=== PATIENT | female | born 1995 | race Caucasian/White ===

== ENCOUNTER 2019-01-02 13:21 | Emergency (ER) | payer OTHER ==
[2019-01-02 15:28] LABS: Absolute Lymphocytes (CBC) 1.8 K/uL (0.7-4.9); Absolute Monocytes 0.8 K/uL (0.1-1.3); Absolute Neutrophil 7.6 K/uL (1.8-8.0); Basophils % 0.5 % (0-1.3); Eosinophils % 3.4 % (0-4.4); Hematocrit 41.3 % (36.0-45.0); Lymphocytes % 17.3 % (15.3-44.8); MPV 9.2 fL (7.6-11.3); Monocytes % 7.6 % (3.3-12.3); RBC Red Blood Cell Count 4.52 M/uL (3.86-4.86)
[2019-01-02 15:52] LABS: Urine Amorphous Sediment 1+ /HPF (NONE SEEN); Urine Bacteria 20-50 /HPF (<20); Urine Culture Reflex Order REFLEXED
[2019-01-02 15:53] LABS: Urine Blood 1+ (NEG); Urine Glucose NEGATIVE (NEG); Urine Protein 1+ (NEG)
[2019-01-02 16:25] LABS: BUN Blood Urea Nitrogen 4 mg/dL (7-18); Bicarbonate 25 mmol/L (21-32); Glucose Level 72 mg/dL (74-106); HCG, Quantitative 47326 mIU/mL (1-3); Potassium 3.9 mmol/L (3.5-5.1); Sodium Level 136 mmol/L (136-145); Troponin (Emerg Dept Use Only) < 0.02 ng/mL (0.0-0.045)
--- NOTE | 2019-01-02 17:30 | ER ---
Nurse's Notes [facility] Name: Gayle Hunt Age: 23 yrs Sex: Female : 1995 Arrival Date: 01/02/2019 Time: 13:24 Bed 24 Private MD: Diagnosis: 8 weeks gestation of ;Syncope and collapse;Urinary tract infection, site not specified Presentation: 01/02 13:45 Presenting complaint: Frequent syncopal episodes, subjective fever, and N/V x 1 week. hb Tolerating fluids, not tolerating solids. Seen at [facility], told she was dehydrated. Report she is approx 6 weeks , DONAVAN 08/17/19, . Transition of care: patient was not received from another setting of care. Onset of symptoms was December 26, 2018. Risk Assessment: Do you want to hurt yourself or someone else? Patient reports no desire to harm self or others. Initial Sepsis Screen: Does the patient meet any 2 criteria? No. Patient's initial sepsis screen is negative. Does the patient have a suspected source of infection? No. Patient's initial sepsis screen is negative. Care prior to arrival: None. 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 - Social history:: Smoking status: Patient/guardian denies using tobacco. - Ebola Screening: : No symptoms or risks identified at this time. Screenin:52 Abuse screen: Denies threats or abuse. Denies injuries from another. Nutritional rv screening: No deficits noted. Tuberculosis screening: No symptoms or risk factors identified. Fall Risk None identified. Assessment: 14:50 General: Appears in no apparent distress. comfortable, Behavior is calm, cooperative. rv Pain: Denies pain. Neuro: Level of Consciousness is awake, alert, obeys commands, Oriented to person, place, time, situation, Reports a syncopal episode. Cardiovascular: Patient's skin is warm and dry. Respiratory: Airway is compromised. GI: Abdomen is round Reports nausea, vomiting. : No signs and/or symptoms were reported regarding the genitourinary system. EENT: No signs and/or symptoms were reported regarding the EENT system. Derm: Skin is intact. Musculoskeletal: No signs and/or symptoms reported regarding the musculoskeletal system. Vital Signs: 13:48 BP 128 / 78; Pulse 102; Resp 16; Temp 97.4; Pulse Ox 99% on R/A; Weight 68.04 kg; hb Height 4 ft. 11 in. (149.86 cm); Pain 0/10; 15:35 BP 97 / 69 LA Supine (auto/lg); Pulse 81; Pulse Ox 98% on R/A; jp3 15:37 BP 105 / 75 LA Sitting (auto/lg); Pulse 76; Pulse Ox 100% on R/A; jp3 15:39 BP 124 / 101 LA Standing (auto/lg); Pulse 95; Pulse Ox 100% on R/A; jp3 16:00 BP 107 / 74; Pulse 75; Resp 16; Pulse Ox 96% ; rv 16:30 BP 105 / 67; Pulse 82; Resp 17; Temp 97.9; Pulse Ox 97% ; rv 17:30 BP 99 / 70; Pulse 86; Resp 17; Temp 98; Pulse Ox 99% ; rv 13:48 Body Mass Index 30.30 (68.04 kg, 149.86 cm) hb 15:35 Pt states "I feel dizzy and some chest pressure (8/10)" jp3 15:37 Pt states "If feel dizzy, some blurry vision; worse than laying down" jp3 15:39 Pt states " I feel weakness in my knees, dizziness, vlurry vision; chest pressure worse jp3 than all 3 postions" ED Course: 13:24 Patient arrived in ED. rg4 13:35 [facility]C [facility] kb 13:35 Jhon Figueroa MD is Attending Physician. kb 13:48 Triage completed. hb 13:48 Arm band placed on. hb 14:44 Patrice Beckwith, ZONIA is Primary Nurse. rv 14:52 Patient has correct armband on for positive identification. Bed in low position. Call rv light in reach. Side rails up X 1. Adult w/ patient. Pulse ox on. NIBP on. 15:15 Inserted saline lock: 22 gauge in right antecubital area, using aseptic technique. rv 15:43 Initial lab(s) drawn, by laborer beam house, sent to lab. Urine collected: clean catch specimen, rv cloudy, Amount Voided: 10mL. 17:29 Ultrasound completed. Patient tolerated well. sg3 17:31 US Transvaginal Ob In Process Unspecified. EDMS 17:44 No provider procedures requiring assistance completed. IV discontinued, intact, rv bleeding controlled, No redness/swelling at site. Pressure dressing applied. Administered Medications: No medications were administered Outcome: 17:29 Discharge ordered by . kb 17:44 Discharged to home ambulatory. rv 17:44 Condition: good 17:44 Discharge instructions given to patient, Instructed on discharge instructions, follow up and referral plans. medication usage, Demonstrated understanding of instructions, follow-up care, medications, Prescriptions given X 1. 17:45 Patient left the ED. rv Signatures: Dispatcher [employer] EDWA Zainab Roach, COMMUNITY ACTION WORKER-C COMMUNITY ACTION WORKER-Ckb Bonita Fields, RN RN Kimberlyn Daugherty4 Ana Price sg3 Patrice Beckwith RN RN rv Fransico Nagy jp3
--- NOTE | 2019-01-02 17:30 | EDPHYS ---
Physician Documentation [facility] Name: Gayle Hunt Age: 23 yrs Sex: Female : 1995 Arrival Date: 01/02/2019 Time: 13:24 Bed 24 Private MD: ED Physician Jhon Figueroa HPI: 01/02 16:26 This 23 yrs old Female presents to ER via Wheelchair with complaints of kb Fainting, Vomiting, 6 Weeks ,Body Aches. 16:26 The patient has experienced syncope, collapsed. Onset: The symptoms/episode kb began/occurred 1 week(s) ago. Duration: The patient has had multiple episodes. Context: occurred at home, Just prior to the episode the patient experienced no apparent symptoms. Associated injury: The patient did not suffer any apparent associated injury. Associated signs and symptoms: Pertinent positives: 1st trimester. Current symptoms: Currently, the patient is not experiencing any symptoms, the patient feels back to baseline, no decreased level of consciousness, no confusion, no dysphasia, no headache, no paralysis, no visual changes. The patient has not experienced similar symptoms in the past. The patient has been recently seen by a physician: the ER physician, out of Town. 16:35 Pt reports she has had several syncopal episodes in the last week. Was seen at [facility] ER kb and told it was from dehydration. States she has been staying hydrated, drinking a lot of water, but still having syncopal episodes. States she has been unable to tolerate food all week as well. Able to tolerate water, but if she eats anything it causes her to vomit. . 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 - Social history:: Smoking status: Patient/guardian denies using tobacco. - Ebola Screening: : No symptoms or risks identified at this time. ROS: 16:42 Constitutional: Negative for fever, chills, and weight loss, ENT: Negative for injury, kb pain, and discharge, Neck: Negative for injury, pain, and swelling, Cardiovascular: Negative for chest pain, palpitations, and edema, Respiratory: Negative for shortness of breath, cough, wheezing, and pleuritic chest pain, Back: Negative for injury and pain, : Negative for injury, bleeding, discharge, and swelling, MS/Extremity: Negative for injury and deformity, Skin: Negative for injury, rash, and discoloration. 16:42 Abdomen/GI: Positive for nausea and vomiting, abdominal cramps. 16:42 Neuro: Positive for syncope. Exam: 16:42 Constitutional: This is a well developed, well nourished patient who is awake, alert, kb and in no acute distress. Head/Face: Normocephalic, atraumatic. Eyes: Pupils equal round and reactive to light, extra-ocular motions intact. Lids and lashes normal. Conjunctiva and sclera are non-icteric and not injected. Cornea within normal limits. Periorbital areas with no swelling, redness, or edema. ENT: Nares patent. No nasal discharge, no septal abnormalities noted. Tympanic membranes are normal and external auditory canals are clear. Oropharynx with no redness, swelling, or masses, exudates, or evidence of obstruction, uvula midline. Mucous membranes moist. Neck: Trachea midline, no thyromegaly or masses palpated, and no cervical lymphadenopathy. Supple, full range of motion without nuchal rigidity, or vertebral point tenderness. No Meningismus. Chest/axilla: Normal chest wall appearance and motion. Nontender with no deformity. No lesions are appreciated. Cardiovascular: Regular rate and rhythm with a normal S1 and S2. No gallops, murmurs, or rubs. Normal PMI, no JVD. No pulse deficits. Respiratory: Lungs have equal breath sounds bilaterally, clear to auscultation and percussion. No rales, rhonchi or wheezes noted. No increased work of breathing, no retractions or nasal flaring. Abdomen/GI: Soft, non-tender, with normal bowel sounds. No distension or tympany. No guarding or rebound. No evidence of tenderness throughout. Skin: Warm, dry with normal turgor. Normal color with no rashes, no lesions, and no evidence of cellulitis. MS/ Extremity: Pulses equal, no cyanosis. Neurovascular intact. Full, normal range of motion. Neuro: Awake and alert, GCS 15, oriented to person, place, time, and situation. Cranial nerves II-XII grossly intact. Motor strength 5/5 in all extremities. Sensory grossly intact. Cerebellar exam normal. Normal gait. 16:57 ECG was reviewed by the Attending Physician. kb Vital Signs: 13:48 BP 128 / 78; Pulse 102; Resp 16; Temp 97.4; Pulse Ox 99% on R/A; Weight 68.04 kg; hb Height 4 ft. 11 in. (149.86 cm); Pain 0/10; 15:35 BP 97 / 69 LA Supine (auto/lg); Pulse 81; Pulse Ox 98% on R/A; jp3 15:37 BP 105 / 75 LA Sitting (auto/lg); Pulse 76; Pulse Ox 100% on R/A; jp3 15:39 BP 124 / 101 LA Standing (auto/lg); Pulse 95; Pulse Ox 100% on R/A; jp3 16:00 BP 107 / 74; Pulse 75; Resp 16; Pulse Ox 96% ; rv 16:30 BP 105 / 67; Pulse 82; Resp 17; Temp 97.9; Pulse Ox 97% ; rv 17:30 BP 99 / 70; Pulse 86; Resp 17; Temp 98; Pulse Ox 99% ; rv 13:48 Body Mass Index 30.30 (68.04 kg, 149.86 cm) hb 15:35 Pt states "I feel dizzy and some chest pressure (8/10)" jp3 15:37 Pt states "If feel dizzy, some blurry vision; worse than laying down" jp3 15:39 Pt states " I feel weakness in my knees, dizziness, vlurry vision; chest pressure worse jp3 than all 3 postions" MDM: 14:36 Patient medically screened. kb 16:25 Data reviewed: vital signs, nurses notes. Data interpreted: Pulse oximetry: on room air kb is 100 %. Interpretation: normal. 17:28 Counseling: I had a detailed discussion with the patient and/or guardian regarding: the kb historical points, exam findings, and any diagnostic results supporting the discharge/admit diagnosis, lab results, radiology results, the need for outpatient follow up, an OB/Gyne specialist, to return to the emergency department if symptoms worsen or persist or if there are any questions or concerns that arise at home. ED course: Pt reports she is feeling fine. Has appt with OB on Thursday. . 01/02 14:41 Order name: Quantitative Hcg kb 01/02 14:41 Order name: Abo/rh Typing kb 01/02 14:41 Order name: Basic Metabolic Panel kb 01/02 14:41 Order name: CBC with Diff; Complete Time: 15:35 kb 01/02 14:41 Order name: Troponin (emerg Dept Use Only); Complete Time: 16:39 kb 01/02 14:44 Order name: HCG, Quantitative; Complete Time: 16:39 EDMS 01/02 14:41 Order name: EKG; Complete Time: 14:45 kb 01/02 14:44 Order name: ABO/RH typing; Complete Time: 16:15 EDMS 01/02 14:44 Order name: Basic Metabolic Panel; Complete Time: 16:39 EDMS 01/02 15:36 Order name: Urine Microscopic Only; Complete Time: 15:59 kb 01/02 15:42 Order name: Urine Dipstick--Ancillary (enter results); Complete Time: 15:59 ag 01/02 15:42 Order name: Urine --Ancillary (enter results); Complete Time: 15:59 ag 01/02 15:53 Order name: Urine Culture EDMS 01/02 16:39 Order name: US Transvaginal Ob kb 01/02 13:50 Order name: Orthostatics; Complete Time: 15:41 kb 01/02 13:55 Order name: Urine Dipstick-Ancillary (obtain specimen); Complete Time: 15:41 kb 01/02 13:55 Order name: Urine Test (obtain specimen); Complete Time: 15:41 kb 01/02 14:41 Order name: IV Saline Lock; Complete Time: 15:41 kb 01/02 14:41 Order name: Labs collected and sent; Complete Time: 15:40 kb 01/02 14:41 Order name: NPO; Complete Time: 15:41 kb 01/02 14:41 Order name: EKG - Nurse/Tech; Complete Time: 15:40 kb EC:57 Rate is 77 beats/min. Rhythm is regular, Normal Sinus Rhythm. QRS Salvo is Normal. MS kb interval is normal at 122 msec. QRS interval is normal at 74 msec. QT interval is normal at 380 msec. Clinical impression: Normal ECG. Interpreted by me. Reviewed by me. Administered Medications: No medications were administered Disposition: 18:36 Co-signature as Attending Physician, Jhon Figueroa MD. rn Disposition: 01/02/19 17:29 Discharged to Home. Impression: 8 weeks gestation of , Syncope and collapse, Urinary tract infection, site not specified. - Condition is Stable. - Discharge Instructions: First Trimester of , [id number], and Urinary Tract Infection. - Prescriptions for Macrobid 100 mg Oral Capsule - take 1 capsule by ORAL route every 12 hours for 7 days; 14 capsule. - Medication Reconciliation Form, Thank You Letter, Antibiotic Education, Prescription Opioid Use form. - Follow up: Emergency Department; When: As needed; Reason: Worsening of condition. Follow up: Private Physician; When: 2 - 3 days; Reason: Recheck today's complaints, Continuance of care, Re-evaluation by your physician. Signatures: Dispatcher [employer] EDMS Zainab Roach, CLINIC OFFICE COORDINATOR-C CLINIC OFFICE COORDINATOR-Jhon Palomino MD MD rn Baxter, Heather, RN RN Patrice Martinez RN RN rv Corrections: (The following items were deleted from the chart) 17:45 17:29 01/02/2019 17:29 Discharged to Home. Impression: 8 weeks gestation of ; rv Syncope and collapse; Urinary tract infection, site not specified. Condition is Stable. Forms are Medication Reconciliation Form, Thank You Letter, Antibiotic Education, Prescription Opioid Use. Follow up: Emergency Department; When: As needed; Reason: Worsening of condition. Follow up: Private Physician; When: 2 - 3 days; Reason: Recheck today's complaints, Continuance of care, Re-evaluation by your physician. kb
--- NOTE | 2019-01-02 18:02 | RAD REPORT ---
EXAM DESCRIPTION: US - Transvaginal OB - 01/02/2019 5:30 pm COMPARISON: None. TECHNIQUE: Endovaginal sonography performed. FINDINGS: Normal shaped intrauterine gestational sac identified. Small fibroid is present in the fun dus approximately 13 mm in size. No intrauterine hematoma or other significant finding. Gestational s ac and yolk sac are identifiable. Normal blood flow seen in each ovary. No adnexal abnormalities. Ges tational sac and crown-rump length measurements yield 7 week 0 day age. DONAVAN is 08/21/2019. Heart rate is 139 BPM. IMPRESSION: Single 7 week 0 day IUP. Heart rate is 139 BPM.
--- NOTE | 2019-01-03 09:55 | EKG ---
Test Date: 2019-01-02 Test Time: 16:56:42 Retort Load Expediter: RV MEASUREMENT RESULTS: Intervals: Rate: 77 IN: 122 QRSD: 74 QT: 380 QTc: 430 Vinton: P: 47 IN: 122 QRS: 78 T: 61 INTERPRETIVE STATEMENTS: Normal sinus rhythm with sinus arrhythmia Normal ECG No previous ECG available for comparison Electronically Signed On 01-03-19 09:54:17 CDT by Amrit Ramesh
== END 2019-01-02 17:45 | disposition home or self-care (01) ==
LOC: ER 13:21
DX: O23.41 Unspecified infection of urinary tract in pregnancy, first trimester (principal); Z3A.01 Less than 8 weeks gestation of pregnancy; R55 Syncope and collapse
CPT/HCPCS: 36415; 76817; 80048; 81003; 81015; 81025; 84484; 84702; 85025; 86900; 86901; 87086; 87088; 93005; 99284

== ENCOUNTER 2019-08-08 22:57 | Inpatient (IN) | payer OTHER ==
--- OUTSIDE RECORDS SUMMARY | 2019-08-08 22:58 | XMS REPORT ---
:1995 [facility] Address [address] [place] [address] [place] [id number] Care Team Providers Name Role Phone Unavailable Unavailable Unavailable Problems This patient has no known problems. Allergies, Adverse Reactions, Alerts This patient has no known allergies or adverse reactions. Medications This patient has no known medications.
[2019-08-08] MEDS ORDERED: ACETAMINOPHEN 500 MG TAB ONE (23:16)
[2019-08-08] MEDS ORDERED: NA CHLORIDE 0.9% 1,000 ML ONE (23:17)
[2019-08-08 23:38] LABS: Absolute Lymphocytes (CBC) 0.5 K/uL (0.7-4.9); Basophils % 0.2 % (0-1.3); Lymphocytes % 3.2 % (15.3-44.8); MPV 11.6 fL (7.6-11.3); RBC Red Blood Cell Count 3.76 M/uL (3.86-4.86)
[2019-08-08 23:58] LABS: ALT/SGPT 11 U/L (12-78); AST/SGOT 12 U/L (15-37); Albumin 2.6 g/dL (3.4-5.0); Alkaline Phosphatase 161 U/L (45-117); BUN Blood Urea Nitrogen 3 mg/dL (7-18); Bicarbonate 22 mmol/L (21-32); Bilirubin Direct < 0.1 mg/dL (0-0.2); Bilirubin Total 0.5 mg/dL (0.2-1.0); Glucose Level 115 mg/dL (74-106); Lipase 76 U/L (73-393); Potassium 3.5 mmol/L (3.5-5.1); Protein, Total 6.9 g/dL (6.4-8.2); Sodium Level 137 mmol/L (136-145)
[2019-08-09] MEDS ORDERED: NA CHLORIDE 0.9% 1,000 ML ONE (00:14)
[2019-08-09 00:51] LABS: Blood Morphology Comment NOT SEEN (NOT SEEN); Platelet Estimate ADEQ
[2019-08-09 00:56] LABS: Urine Bacteria 20-50 /HPF (<20); Urine Culture Reflex Order REFLEXED; Urine RBC <5 /HPF (NONE SEEN)
[2019-08-09 00:58] LABS: Urine Blood NEGATIVE (NEG); Urine Glucose NEGATIVE (NEG); Urine Protein 1+ (NEG); Urine Specific Gravity 1.025 (1.005-1.030)
[2019-08-09] MEDS ORDERED: CEFTRIAXONE/SWI 1gm 1 GM/10 ML SYR ONE (01:16)
--- NOTE | 2019-08-09 02:31 | EDPHYS ---
Physician Documentation [facility] Name: Gayle Hunt Age: 24 yrs Sex: Female : 1995 Arrival Date: 08/08/2019 Time: 23:00 Bed 25 Private MD: ED Physician Airam Cooper HPI: 08/08 23:50 This 24 yrs old Female presents to ER via Ambulatory with complaints of jr8 Nausea/Vomiting, Fever. 23:50 The patient presents to the emergency department with nausea, vomiting. Onset: The jr8 symptoms/episode began/occurred gradually, 4 day(s) ago. Possible causes: unknown. The symptoms are aggravated by nothing. The symptoms are alleviated by nothing. Associated signs and symptoms: Pertinent positives: fever. Severity of symptoms: At their worst the symptoms were moderate in the emergency department the symptoms are unchanged. The patient has not experienced similar symptoms in the past. The patient has been recently seen by a physician:. Patient stated that she saw her OB and was diagnosed with influenza. Started on nausea medicine and Tamiflu. Came to ED today for continued fevers and elevated heart rate. 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 - Social history:: Smoking status: Patient/guardian denies using tobacco, never smoked. - Ebola Screening: : No symptoms or risks identified at this time. ROS: 23:50 Eyes: Negative for injury, pain, redness, and discharge, ENT: Negative for injury, jr8 pain, and discharge, Neck: Negative for injury, pain, and swelling, Cardiovascular: Negative for chest pain, palpitations, and edema, Respiratory: Negative for shortness of breath, cough, wheezing, and pleuritic chest pain, Back: Negative for injury and pain, MS/Extremity: Negative for injury and deformity, Skin: Negative for injury, rash, and discoloration, Neuro: Negative for headache, weakness, numbness, tingling, and seizure. 23:50 Constitutional: Positive for fever, malaise, poor PO intake. 23:50 Abdomen/GI: Positive for nausea and vomiting, abdominal cramps, Negative for abdominal pain, diarrhea. Exam: 23:50 Eyes: Pupils equal round and reactive to light, extra-ocular motions intact. Lids and jr8 lashes normal. Conjunctiva and sclera are non-icteric and not injected. Cornea within normal limits. Periorbital areas with no swelling, redness, or edema. ENT: Nares patent. No nasal discharge, no septal abnormalities noted. Tympanic membranes are normal and external auditory canals are clear. Oropharynx with no redness, swelling, or masses, exudates, or evidence of obstruction, uvula midline. Mucous membranes moist. Neck: Trachea midline, no thyromegaly or masses palpated, and no cervical lymphadenopathy. Supple, full range of motion without nuchal rigidity, or vertebral point tenderness. No Meningismus. Respiratory: Lungs have equal breath sounds bilaterally, clear to auscultation and percussion. No rales, rhonchi or wheezes noted. No increased work of breathing, no retractions or nasal flaring. Back: No spinal tenderness. No costovertebral tenderness. Full range of motion. Skin: Warm, dry with normal turgor. Normal color with no rashes, no lesions, and no evidence of cellulitis. MS/ Extremity: Pulses equal, no cyanosis. Neurovascular intact. Full, normal range of motion. Neuro: Awake and alert, GCS 15, oriented to person, place, time, and situation. Cranial nerves II-XII grossly intact. Motor strength 5/5 in all extremities. Sensory grossly intact. Cerebellar exam normal. Normal gait. 23:50 Constitutional: The patient appears alert, awake, febrile. 23:50 Cardiovascular: Rate: tachycardic, Rhythm: regular, Pulses: Pulses are 2+ in right radial artery and left radial artery. Heart sounds: normal, normal S1and S2, no S3 or S4, no murmur, no rub, no gallop, Edema: is not appreciated, JVD: is not appreciated. 23:50 Abdomen/GI: Inspection: gravid appearance, is noted, Bowel sounds: active, all quadrants, Palpation: abdomen is soft and non-tender, in all quadrants. Vital Signs: 23:21 BP 114 / 64; Pulse 147; Resp 19; Temp 100.2(O); Pulse Ox 99% on R/A; Pain 0/10; fu 23:45 BP 101 / 64; Pulse 133; Resp 18; Pulse Ox 100% on R/A; Pain 0/10; fu 08/09 00:17 BP 93 / 58; Pulse 129; Resp 16; Temp 99.9; Pulse Ox 100% on R/A; Pain 0/10; fu 01:30 BP 91 / 47; Pulse 115; Pulse Ox 98% on R/A; Pain 0/10; fu 02:12 BP 105 / 55; Pulse 113; Resp 18; Temp 99.0; Pulse Ox 98% ; Pain 0/10; fu 02:30 BP 106 / 47; Pulse 118; Resp 16; Pulse Ox 98% on R/A; Pain 0/10; fu 03:00 BP 99 / 55; Pulse 121; Resp 17; Pulse Ox 98% on R/A; Pain 0/10; fu 04:00 BP 91 / 50; Pulse 114; Pulse Ox 98% on R/A; Pain 0/10; fu MDM: 08/08 23:02 Patient medically screened. ma2 08/09 02:27 Data reviewed: vital signs, nurses notes, lab test result(s), EKG. Data interpreted: Pulse oximetry: on room air is 98 %. Interpretation: normal. Counseling: I had a detailed discussion with the patient and/or guardian regarding: the historical points, exam findings, and any diagnostic results supporting the discharge/admit diagnosis, lab results, the need for further work-up and treatment in the hospital. ED course: Called and Left message for Dr. Randall to call back for consult on case. Called Dr. Romero who will admit for medicine. Patient has done much better after being hydrated. Will send patient to L\T\D for [place] monitoring. If baby is doing well will admit to floor with consult to OB which Dr. Romero is good with. 08/08 23:06 Order name: Basic Metabolic Panel; Complete Time: 00:02 08/08 23:06 Order name: CBC with Diff; Complete Time: 00:52 08/08 23:06 Order name: Creatinine for Radiology; Complete Time: 23:54 08/08 23:06 Order name: Hepatic Function; Complete Time: 00:02 08/08 23:06 Order name: Lipase; Complete Time: 00:02 08/08 23:06 Order name: Urine Microscopic Only; Complete Time: 00:58 08/08 23:06 Order name: Strep; Complete Time: 00:22 08/08 23:06 Order name: Influenza Screen (a \T\ B); Complete Time: 00:22 08/08 23:44 Order name: Manual Differential; Complete Time: 00:52 EDMS 08/09 00:18 Order name: Throat Culture [facility] 08/09 00:26 Order name: Lactate; Complete Time: 01:47 08/09 00:26 Order name: Procalcitonin; Complete Time: 01:51 08/09 00:26 Order name: Blood Culture Adult (2) [facility] 08/09 00:45 Order name: Urine Dipstick--Ancillary (enter results); Complete Time: 00:58 [facility] 08/08 23:06 Order name: IV Saline Lock; Complete Time: 23:24 08/08 23:06 Order name: Labs collected and sent; Complete Time: 23:25 08/08 23:06 Order name: Urine Dipstick-Ancillary (obtain specimen); Complete Time: 00:32 08/08 23:12 Order name: EKG - Nurse/Tech; Complete Time: 23:38 08/09 00:58 Order name: Urine Culture EDMS Administered Medications: 08/08 23:27 Drug: NS 0.9% 1000 ml Route: IV; Rate: 1000 ml; Site: left antecubital; fu 08/09 00:14 Follow up: Response: No adverse reaction fu 08/08 23:38 Drug: Tylenol 1000 mg Route: PO; fu 08/09 00:14 Follow up: Response: Temperature is decreased fu 00:13 Drug: NS 0.9% 1000 ml Route: IV; Rate: 1000 ml; Site: left antecubital; fu 01:15 Drug: Rocephin 1 grams Route: IV; Rate: calculated rate; Site: left antecubital; fu 01:45 Follow up: Response: No adverse reaction fu Disposition: 04:31 Co-signature as Attending Physician, Airam Cooper MD. ma2 Disposition: 08/09/19 02:30 Hospitalization ordered by Airam Romero for Inpatient Admission. Preliminary diagnosis are Acute cystitis, Fever presenting with conditions classified elsewhere, Dehydration. - Bed [facility] for [facility]. - Status is Inpatient Admission. bb - Condition is Stable. - Problem is new. - Symptoms have improved. UTI on Admission? Yes Signatures: Dispatcher [employer] EDMS Callie Holloway RN RN bb Roszak, Josh, PA PA jr8 Fazal Hdz RN RN fu Alzahri, Mohammad, MD MD ma2 Corrections: (The following items were deleted from the chart) 02:52 02:30 Hospitalization Ordered by Airam Romero MD for Inpatient Admission. Preliminary bb diagnosis is Acute cystitis; Fever presenting with conditions classified elsewhere; Dehydration. Bed requested for Telemetry/MedSurg (Inpatient). Status is Inpatient Admission. Condition is Stable. Problem is new. Symptoms have improved. UTI on Admission? Yes. jr8 04:22 02:52 08/09/2019 02:30 Hospitalization Ordered by Airam Romero MD for Inpatient bb Admission. Preliminary diagnosis is Acute cystitis; Fever presenting with conditions classified elsewhere; Dehydration. Bed requested for [facility]. Status is Inpatient Admission. Condition is Stable. Problem is new. Symptoms have improved. UTI on Admission? Yes. bb
--- NOTE | 2019-08-09 02:31 | ER ---
Nurse's Notes [facility] Name: Gayle Hunt Age: 24 yrs Sex: Female : 1995 Arrival Date: 08/08/2019 Time: 23:00 Bed 25 Private MD: Diagnosis: Acute cystitis;Fever presenting with conditions classified elsewhere;Dehydration Presentation: 08/08 23:17 Presenting complaint: Patient states: nausea, vomiting, fever for 2 days, went to Dr. eloy Sneed's office, given with prescriptions. Transition of care: patient was not received from another setting of care. Onset of symptoms was August 06, 2019. Risk Assessment: Do you want to hurt yourself or someone else? Patient reports no desire to harm self or others. Initial Sepsis Screen: Does the patient meet any 2 criteria? HR > 90 bpm. Does the patient have a suspected source of infection? No. Patient's initial sepsis screen is negative. Care prior to arrival: None. 23:17 Method Of Arrival: Ambulatory fu 23:17 Acuity: SILVIA 3 fu Triage Assessment: 23:17 General: Appears in no apparent distress. Behavior is calm, cooperative, appropriate fu for age, Reports fever for for 2 days. Pain: Denies pain. GI: Reports nausea, vomiting, since 2 days. : Denies burning with urination, vaginal bleeding. 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 - Social history:: Smoking status: Patient/guardian denies using tobacco, never smoked. - Ebola Screening: : No symptoms or risks identified at this time. Screenin:32 Abuse screen: Denies threats or abuse. Nutritional screening: No deficits noted. fu Tuberculosis screening: No symptoms or risk factors identified. Fall Risk None identified. Assessment: 23:27 General: Appears in no apparent distress. Behavior is calm, cooperative, appropriate fu for age. Pain: Denies pain. Neuro: Level of Consciousness is awake, alert, obeys commands, Oriented to person, place, time, situation, Drip Box Tender are equal bilaterally Moves all extremities. Cardiovascular: Reports palpitations, Denies chest pain. Respiratory: Denies cough. GI: Bowel sounds present X 4 quads. Abd is soft and non tender Reports nausea, vomiting. GI: Abdomen is enlarged, patient is 38 weeks and 2 days . : Denies burning with urination, vaginal bleeding. EENT: Reports nasal discharge that is watery. 08/09 00:05 Reassessment: Patient appears in no apparent distress at this time. Patient and/or fu family updated on plan of care and expected duration. Pain level reassessed. Patient is alert, oriented x 3, equal unlabored respirations, skin warm/dry/pink. 01:00 Reassessment: Patient appears in no apparent distress at this time. Patient and/or fu family updated on plan of care and expected duration. Pain level reassessed. Patient is alert, oriented x 3, equal unlabored respirations, skin warm/dry/pink. Patient states symptoms have improved. patient denies nausea, vomiting not noted. 02:02 Reassessment: Patient appears in no apparent distress at this time. Patient and/or fu family updated on plan of care and expected duration. Pain level reassessed. Patient is alert, oriented x 3, equal unlabored respirations, skin warm/dry/pink. 02:32 Reassessment: L\T\D notified pt would be admitted and will sent to them for [place] bb monitoring for now. 03:15 Reassessment: Patient appears in no apparent distress at this time. Patient and/or fu family updated on plan of care and expected duration. Pain level reassessed. Patient is alert, oriented x 3, equal unlabored respirations, skin warm/dry/pink. patient notified regarding need for admission to L\T\D for [place] monitoring. patient denies pain, nausea at this time. Vital Signs: 08/08 23:21 BP 114 / 64; Pulse 147; Resp 19; Temp 100.2(O); Pulse Ox 99% on R/A; Pain 0/10; fu 23:45 BP 101 / 64; Pulse 133; Resp 18; Pulse Ox 100% on R/A; Pain 0/10; fu 08/09 00:17 BP 93 / 58; Pulse 129; Resp 16; Temp 99.9; Pulse Ox 100% on R/A; Pain 0/10; fu 01:30 BP 91 / 47; Pulse 115; Pulse Ox 98% on R/A; Pain 0/10; fu 02:12 BP 105 / 55; Pulse 113; Resp 18; Temp 99.0; Pulse Ox 98% ; Pain 0/10; fu 02:30 BP 106 / 47; Pulse 118; Resp 16; Pulse Ox 98% on R/A; Pain 0/10; fu 03:00 BP 99 / 55; Pulse 121; Resp 17; Pulse Ox 98% on R/A; Pain 0/10; fu 04:00 BP 91 / 50; Pulse 114; Pulse Ox 98% on R/A; Pain 0/10; fu ED Course: 08/08 23:00 Patient arrived in ED. cl3 23:00 Fazal Hdz, ZONIA is Primary Nurse. fu 23:02 Airam Cooper MD is Attending Physician. ma2 23:12 Brett Funk PA is PHCP. jr8 23:20 Triage completed. fu 23:20 Emesis basin given. fu 23:24 Initial lab(s) drawn, by me, sent to lab. Flu and/or RSV swab sent to lab. Strep swab lt1 sent to lab. Inserted saline lock: 22 gauge in left antecubital area, using aseptic technique. 23:24 Influenza Screen (a \T\ B) Sent. lt1 23:24 Strep Sent. lt1 23:55 Patient has correct armband on for positive identification. Placed in gown. Bed in low fu position. Call light in reach. Side rails up X 1. 23:56 No provider procedures requiring assistance completed. fu 08/09 00:09 surveillance system monitor on. Pulse ox on. NIBP on. pillow and blanket provided. fu 00:58 First set of blood cultures drawn by me. fu 02:00 Second set of blood cultures drawn by me. fu 02:29 Airam Romero MD is Hospitalizing Provider. jr8 03:59 Patient admitted, IV remains in place. fu Administered Medications: 08/08 23:27 Drug: NS 0.9% 1000 ml Route: IV; Rate: 1000 ml; Site: left antecubital; fu 08/09 00:14 Follow up: Response: No adverse reaction fu 08/08 23:38 Drug: Tylenol 1000 mg Route: PO; fu 08/09 00:14 Follow up: Response: Temperature is decreased fu :13 Drug: NS 0.9% 1000 ml Route: IV; Rate: 1000 ml; Site: left antecubital; fu 01:15 Drug: Rocephin 1 grams Route: IV; Rate: calculated rate; Site: left antecubital; fu 01:45 Follow up: Response: No adverse reaction fu Outcome: 02:30 Decision to Hospitalize by Provider. jr8 03:58 Admitted to L \T\ D, room 270, Report called to Karolina 03:58 Condition: stable 03:58 Instructed on the need for admit. 04:22 Patient left the ED. bb Signatures: Callie Holloway RN RN Brett Vogt PA PA jr8 Fazal Hdz RN RN Airam Cooper MD MD ks2 Caty Smyth [facility] Akbar Lr 3 Corrections: (The following items were deleted from the chart) 00:07 08/08 23:21 LMP 11/05/2018, Verified, EDC 08/12/2019, Gestational age from LMP: fu 39 weeks 4 days fu 08/09 01:45 01:30 BP 91 / 47; Pulse 115bpm; Pulse Ox 98% RA; Pain 1/10; fu fu
[2019-08-09] MEDS ORDERED: ONDANSETRON 4 MG/2 ML VIAL IV PRN (03:58)
[2019-08-09] MEDS ORDERED: MORPHINE 2 MG/ML SYR IV PRN (03:58)
[2019-08-09] MEDS ORDERED: NA CHLORIDE 0.9% 500 ML IV ONE (06:08)
[2019-08-09 06:21] LABS: Absolute Lymphocytes (CBC) 0.5 K/uL (0.7-4.9); Basophils % 0.2 % (0-1.3); Hematocrit 29.7 % (36.0-45.0); Lymphocytes % 4.2 % (15.3-44.8); MPV 11.4 fL (7.6-11.3); RBC Red Blood Cell Count 3.35 M/uL (3.86-4.86)
[2019-08-09 06:30] LABS: Protime INR 0.96
[2019-08-09 06:36] LABS: ALT/SGPT 10 U/L (12-78); AST/SGOT 10 U/L (15-37); Albumin 2.2 g/dL (3.4-5.0); Alkaline Phosphatase 149 U/L (45-117); BUN Blood Urea Nitrogen 3 mg/dL (7-18); Bicarbonate 24 mmol/L (21-32); Bilirubin Total 0.4 mg/dL (0.2-1.0); Glucose Level 86 mg/dL (74-106); Potassium 3.8 mmol/L (3.5-5.1); Protein, Total 5.8 g/dL (6.4-8.2); Sodium Level 139 mmol/L (136-145)
--- NOTE | 2019-08-09 06:44 | P.HP ---
Certification for Inpatient Patient admitted to: Inpatient With expected LOS: >2 Midnights Patient will require the following post-hospital care: None Practitioner: I am a practitioner with admitting privileges, knowledge of patient current condition, hospital course, and medical plan of care. Services: Services provided to patient in accordance with Admission requirements found in Title 42 Section 412.3 of the Code of Federal Regulations Patient History Date of Service: 08/09/19 Reason for admission: Intrauterine /urinary tract infection/sepsis History of Present Illness: Patient is a 24-year-old female who presents to the emergency room with fever and tachycardia. Patient's heart rate was in the 140s. She is 8 months and her date of induction was August 15. In the ER she was given multiple fluid boluses and her blood pressure and heart rate have improved. She will be admitted to the [facility] for closer monitoring. Will continue with IV antibiotic therapy. Will also get OB consultation. Incidentally, patient was diagnosed with the flu about a week ago. She is completed her Tamiflu and she is not having any upper respiratory symptoms. Will continue to monitor her closely at the [facility]. Allergies No Known Drug Allergies Allergy (Unverified 10/26/14 23:55) Unknown NKDA Allergy (Uncoded 12/12/13 11:34) Unknown - Past Medical/Surgical History Past Medical History: Patient denies medical history Past Surgical History: Patient denies surgical history - Family History Father Family History: Reviewed- Non-Contributory - Social History Smoking Status: Never smoker Alcohol use: No CD- Drugs: No Review of Systems 10-point ROS is otherwise unremarkable Physical Examination - Vital Signs Temperature: 98.7 F Blood Pressure: 107/76 Pulse: 85 Respirations: 18 Pulse Ox (%): 96 - Physical Exam General: Alert, In no apparent distress, Oriented x3 HEENT: Atraumatic, PERRLA, Mucous membr. moist/pink, EOMI, Sclerae nonicteric Neck: Supple, 2+ carotid pulse no bruit, No LAD, Without JVD or thyroid abnormality Respiratory: Clear to auscultation bilaterally, Normal air movement Cardiovascular: Regular rate/rhythm, Normal S1 S2, No murmurs Gastrointestinal: Normal bowel sounds, Soft and benign, Non-distended, No tenderness Musculoskeletal: No clubbing, No swelling, No tenderness Integumentary: No rashes Neurological: Normal gait, Normal speech, Normal strength at 5/5 x4 extr, Normal tone, Sensation intact, Cranial nerves 3-12 intact, Normal affect Lymphatics: No axilla or inguinal lymphadenopathy - Studies Laboratory Data (last 24 hrs) 08/08/19 23:21: Creatinine 0.78 08/08/19 23:21: WBC 16.6 H, Hgb 10.6 L, Hct 33.0 L, Plt Count 169 08/08/19 23:21: Sodium 137, Potassium 3.5, BUN 3 L, Creatinine 0.74, Glucose 115 H, Total Bilirubin 0.5, AST 12 L, ALT 11 L, Alkaline Phosphatase 161 H, Lipase 76 Microbiology Data (last 24 hrs): 08/08/19 23:21 Throat Group A Streptococcus Rapid Screen - Final 08/08/19 23:21 Nasopharnyx Influenza Type A Antigen Screen - Final 08/08/19 23:21 Nasopharnyx Influenza Type B Antigen Screen - Final Assessment & Plan - Problems (Diagnosis) (1) UTI (urinary tract infection) Current Visit: Yes Status: Acute (2) Sepsis Current Visit: Yes Status: Acute (3) Tachycardia Current Visit: Yes Status: Acute (4) Leukocytosis Current Visit: Yes Status: Acute (5) Normal IUP (intrauterine ) on ultrasound Current Visit: Yes Status: Acute - Plan Plan: 1. IV hydration 2. IV antibiotics; cultures are pending; procalcitonin is negative 3. OB consultation 4. Pain control as needed 5. Antiemetics 6. GI and DVT prophylaxis Discharge Plan: Home Plan to discharge in: Greater than 2 days - Advance Directives Does patient have a Living Will: No Does patient have a Durable POA for Healthcare: No - Code Status/Comfort Care Code Status Assessed: Yes Code Status: Full Code Critical Care: No Time Spent Managing PTS Care (In Minutes): 50
[2019-08-09] MEDS ORDERED: MORPHINE 4 MG/ML SYR IV PRN (07:40)
--- NOTE | 2019-08-09 07:40 | P.PN ---
Date of Service: 08/09/19 Notified by nursing supervisor steno pool that nurses at [facility] did not feel comfortable taking care of the patient as patient had questionable flu 1 week ago. Patient was treated with Tamiflu 1 week ago. She was given a 5 days course. Currently she is not having any flu-like symptoms. Patient is not contagious. Patient does have a UTI with fever. But this is unrelated to the flu. There was no swabs done on initial diagnosis, and it was a clinical diagnosis of the flu because she was coughing and congested. Currently she is no longer having the symptoms. Any in addition, she was checked for the flu in the emergency room last night, and this was negative. However, because of nursing concerns brought up by [facility] nursing staff, we will transfer patient to a med/surg bed.
[2019-08-09] MEDS: ACETAMINOPHEN 500 MG TAB PO PRN (10:10)
--- NOTE | 2019-08-09 10:56 | PREOPHP ---
Date of Admission: 08/09/2019 History Of Present Illness: Primigravida at 38 weeks 2 days. Has had nausea and vomiting, now fever , chills, on Mycelex. Went to the emergency room, was diagnosed with a bladder infection and admitte d for evaluation and stabilization. Urinalysis looks minimally like a significant bladder infection. Flu test was negative, but these are highly likely to be incorrect. I think the patient has the fl u. We will start her on Tamiflu twice a day for 5 days. She has been admitted to Dr. Romero. He has already seen her, says he is going to keep her for hydration and antibiotic therapy. We will let him decide when the patient goes home. She was having some irregular contractions now, is not having an y contractions and sleeping soundly. We will see the patient tomorrow if she is still in the hospita and whether or not she needs to stay on this unit or will be transferred out to the second floor, w e will decide. Physical Examination: Vital Signs: All stable. General: At this point, baby looks good. : Her cervix was closed. Family History: Noncontributory. Past Medical History: Noncontributory. Allergies: SHE HAS NO MAJOR ALLERGIES. Plan: Admitted for hydration, antibiotic therapy and I think the patient has the flu, was started on Tamiflu. FELIX/TABITHA Voice ID: [id number]
[2019-08-09] MEDS: CEFTRIAXONE/SWI 1gm 1 GM/10 ML SYR IV SCH ×2 (11:23→20:51)
[2019-08-09] MEDS: NA CHLORIDE 0.9% 1,000 ML IV SCH ×3 (11:23→20:51)
[2019-08-09] MEDS: OSELTAMIVIR 75 MG CAP PO SCH ×2 (13:00→20:51)
[2019-08-09 13:46] VITALS: BMI 36.3
--- NOTE | 2019-08-09 20:57 | EKG ---
Test Date: 2019-08-08 Test Time: 23:33:36 Wire Drawing Machine Operator: JEANETTET MEASUREMENT RESULTS: Intervals: Rate: 137 TX: 114 QRSD: 70 QT: 288 QTc: 434 [place]: P: 42 TX: 114 QRS: 66 T: 11 INTERPRETIVE STATEMENTS: Sinus tachycardia Otherwise normal ECG Compared to ECG 01/02/2019 16:56:42 Sinus rhythm no longer present Sinus arrhythmia no longer present Electronically Signed On 08-09-19 20:55:09 DIRECTOR OF CONVENTION SERVICES by Filippo Dunham
[2019-08-10 04:24] LABS: Absolute Lymphocytes (CBC) 1.2 K/uL (0.7-4.9); Basophils % 0.1 % (0-1.3); Hematocrit 28.6 % (36.0-45.0); Lymphocytes % 8.7 % (15.3-44.8); MPV 11.5 fL (7.6-11.3); RBC Red Blood Cell Count 3.24 M/uL (3.86-4.86)
[2019-08-10 04:36] LABS: ALT/SGPT 9 U/L (12-78); AST/SGOT 11 U/L (15-37); Albumin 2.1 g/dL (3.4-5.0); Alkaline Phosphatase 148 U/L (45-117); BUN Blood Urea Nitrogen 4 mg/dL (7-18); Bicarbonate 24 mmol/L (21-32); Bilirubin Total 0.2 mg/dL (0.2-1.0); Glucose Level 99 mg/dL (74-106); Potassium 3.7 mmol/L (3.5-5.1); Protein, Total 5.8 g/dL (6.4-8.2); Sodium Level 141 mmol/L (136-145)
--- NOTE | 2019-08-10 08:35 | P.PN ---
Subjective Date of Service: 08/10/19 Chief Complaint: Intrauterine /urinary tract infection/sepsis Improving. AFebrile overnight Physical Examination - Vital Signs Temperature: 97.0 F Blood Pressure: 104/61 Pulse: 96 Respirations: 17 Pulse Ox (%): 100 - Physical Exam General: Alert, In no apparent distress HEENT: Atraumatic, PERRLA, EOMI Neck: Supple, JVD not distended Respiratory: Clear to auscultation bilaterally, Normal air movement Cardiovascular: Regular rate/rhythm, Normal S1 S2 Gastrointestinal: Normal bowel sounds, No tenderness, Other (Gravid uterus) Musculoskeletal: No tenderness Integumentary: No rashes Neurological: Normal speech, Normal tone, Normal affect Lymphatics: No axilla or inguinal lymphadenopathy - Studies Reviewed Medications List Reviewed: Yes Assessment And Plan - Plan Ms Hunt is 24y.o female pw #Severe sepsis 2/2 UTI- UA positive. Urine culture is contaminated. -Continue IV ceftriaxone, responding well. Afebrile and BP is stable. -required IVF boluses on presentation -follow blood culture -Monitor VS #Gravid- >38 weeks . -OB. -Induction planned for 08/15/19. DVT ppx- SCD
[2019-08-10] MEDS: NA CHLORIDE 0.9% 1,000 ML IV SCH ×2 (08:38→18:10)
[2019-08-10] MEDS: CEFTRIAXONE/SWI 1gm 1 GM/10 ML SYR IV SCH ×2 (08:38→22:25)
[2019-08-10] MEDS: OSELTAMIVIR 75 MG CAP PO SCH ×2 (08:38→22:25)
--- NOTE | 2019-08-10 08:47 | PN ---
Patient has been afebrile. She says the baby has been moving. There are no contractions. No ruptur e of membranes. From an obstetrical standpoint, she is quite stable. She says she is not nauseated, no vomiting, so she should be able to hydrate herself. Influenza testing was negative, but I still think patient has influenza. She has been started on Tamiflu. She says they are continuing it. Of c ourse, I will defer to Dr. Romero on her management but from an obstetrical standpoint, she looks good and she can be dismissed any time they say she can go home. She is to follow up with me on Thursday in the office sooner if any problems. FELIX/TABITHA Voice ID: [id number] Report ID: [id number]
[2019-08-10] MEDS ORDERED: MORPHINE 2 MG/ML SYR IV PRN (13:50)
[2019-08-11] MEDS: NA CHLORIDE 0.9% 1,000 ML IV SCH ×3 (04:16→16:00)
[2019-08-11 09:01] VITALS: O2SAT 100
[2019-08-11 09:07] LABS: Absolute Lymphocytes (CBC) 1.6 K/uL (0.7-4.9); Basophils % 0.2 % (0-1.3); Lymphocytes % 20.5 % (15.3-44.8); MPV 11.6 fL (7.6-11.3); RBC Red Blood Cell Count 3.41 M/uL (3.86-4.86)
[2019-08-11] MEDS: CEFTRIAXONE/SWI 1gm 1 GM/10 ML SYR IV SCH (09:09)
[2019-08-11] MEDS: OSELTAMIVIR 75 MG CAP PO SCH (09:09)
[2019-08-11 09:14] LABS: ALT/SGPT 9 U/L (12-78); AST/SGOT 12 U/L (15-37); Albumin 1.9 g/dL (3.4-5.0); Alkaline Phosphatase 153 U/L (45-117); BUN Blood Urea Nitrogen 6 mg/dL (7-18); Bicarbonate 26 mmol/L (21-32); Bilirubin Total 0.1 mg/dL (0.2-1.0); Glucose Level 73 mg/dL (74-106); Potassium 4.2 mmol/L (3.5-5.1); Protein, Total 5.9 g/dL (6.4-8.2); Sodium Level 144 mmol/L (136-145)
[2019-08-11] MEDS: ACETAMINOPHEN 500 MG TAB PO PRN (09:21)
[2019-08-11 12:03] VITALS: BP 102/61; TEMP 97
--- NOTE | 2019-08-11 12:55 | P.DS ---
Admission Date: 08/09/19 Discharge Date: 08/11/19 Disposition: ROUTINE DISCHARGE Reason for Admission: Intrauterine /urinary tract infection/sepsis Brief History of Present Illness: Sepsis due to UTI IUP at > 38 weeks Hospital Course: Ms. Hunt is a 24-year-old female who presented to the emergency room with fever and tachycardia in 140s. She was 8 months and her date of induction was August 15. Patient was in notable severe sepsis due to UTI. Her urinalysis was positive however urine culture was contaminated. She required IV fluid to maintain MAP. She was initiated on ceftriaxone and leukocytosis did resolve. Patient was also followed by OBGYN the while inpatient. Leukocytosis have resolved and she remained afebrile for the past 24 hr. She is hemodynamically stable for discharge. Vital Signs/Physical Exam: Temp Pulse Resp BP Pulse Ox 97.0 F 110 H 16 102/61 100 08/11/19 12:00 08/11/19 12:00 08/11/19 12:00 08/11/19 12:00 08/11/19 12:00 General: Alert, In no apparent distress HEENT: Atraumatic, PERRLA, EOMI Neck: Supple, JVD not distended Respiratory: Clear to auscultation bilaterally, Normal air movement Cardiovascular: Regular rate/rhythm, Normal S1 S2 Gastrointestinal: Normal bowel sounds, No tenderness Musculoskeletal: No tenderness Integumentary: No rashes Neurological: Normal speech, Normal tone, Normal affect Lymphatics: No axilla or inguinal lymphadenopathy Laboratory Data at Discharge: WBC 7.6 K/uL (4.3-10.9) D 08/11/19 08:51 Hgb 9.9 g/dL (12.0-15.0) L 08/11/19 08:51 Hct 30.0 % (36.0-45.0) L 08/11/19 08:51 Plt Count 170 K/uL (152-406) 08/11/19 08:51 PT 11.4 SECONDS (9.5-12.5) 08/09/19 05:47 INR 0.96 08/09/19 05:47 APTT 25.7 SECONDS (24.3-36.9) 08/09/19 05:47 Sodium 144 mmol/L (136-145) 08/11/19 08:51 Potassium 4.2 mmol/L (3.5-5.1) 08/11/19 08:51 BUN 6 mg/dL (7-18) L 08/11/19 08:51 Creatinine 0.58 mg/dL (0.55-1.3) 08/11/19 08:51 Glucose 73 mg/dL (74-106) L 08/11/19 08:51 Total Bilirubin 0.1 mg/dL (0.2-1.0) L 08/11/19 08:51 AST 12 U/L (15-37) L 08/11/19 08:51 ALT 9 U/L (12-78) L 08/11/19 08:51 Alkaline Phosphatase 153 U/L (45-117) H 08/11/19 08:51 Lipase 76 U/L (73-393) 08/08/19 23:21 Home Medications: Pnv No.103/Folic/Om3s/Fish Oil [ Gummies] 1 tab PO BID 08/10/19 Cephalexin [Keflex] 500 mg PO Q8HR 4 Days cap 08/11/19 New Medications: Cephalexin [Keflex] 500 mg PO Q8HR 4 Days cap Diet: Regular Activity: Ad rusty Followup: Maurizio Sneed MD [Primary Care Provider] - (Follow up per scheduled appointment)
[2019-08-11 13:50] LABS: Anisocytosis 1+; Blood Morphology Comment NOTED (NOT SEEN); Platelet Estimate ADEQ
== END 2019-08-11 17:07 | disposition home or self-care (01) | DRG 831 ==
LOC: ER 22:57 → 2ND-WC 08-09 04:00 → 4TH 08-09 13:30
PROVIDERS: ADMIT Hospitalist; ATTEND Hospitalist
DX: O98.813 Other maternal infectious and parasitic diseases complicating pregnancy, third trimester (principal); A41.9 Sepsis, unspecified organism; R65.20 Severe sepsis without septic shock; O23.43 Unspecified infection of urinary tract in pregnancy, third trimester; R00.0 Tachycardia, unspecified; D72.829 Elevated white blood cell count, unspecified; Z3A.38 38 weeks gestation of pregnancy
CPT/HCPCS: 36415; 80048; 80053; 80076; 81003; 81015; 83605; 83690; 84145; 85025; 85610; 85730; 87040; 87070; 87081; 87086; 87088; 87804; 93005; 96374; 99285; J0696; J2270; J7030

== ENCOUNTER 2019-08-15 04:07 | Inpatient (IN) | payer OTHER ==
--- OUTSIDE RECORDS SUMMARY | 2019-08-15 04:09 | XMS REPORT ---
:1995 Author Organization [facility] Address [address] [place] [id number] Care Team Providers Name Role Phone Unavailable Unavailable Unavailable Problems This patient has no known problems. Allergies, Adverse Reactions, Alerts This patient has no known allergies or adverse reactions. Medications This patient has no known medications.
[2019-08-15] MEDS ORDERED: BUTORPHANOL 1 MG/ML INJ IV PRN (04:18)
[2019-08-15] MEDS ORDERED: PROMETHAZINE INJ 25 MG/ML AMP IM PRN (04:18)
[2019-08-15] MEDS ORDERED: METHYLERGONOVINE 0.2MG/ML AMP IM PRN (04:18)
[2019-08-15] MEDS ORDERED: Ringers Lactate 1,000 ML IV PRN (04:18)
[2019-08-15] MEDS ORDERED: CARBOPROST TROME 250 MCG/ML IM PRN (04:18)
[2019-08-15 04:54] VITALS: BMI 36.3
[2019-08-15] MEDS ORDERED: OXYTOCIN/LR 20 UNIT/1,000 ML BAG IV SCH ×2 (05:00→21:00)
[2019-08-15] MEDS ORDERED: Ringers Lactate 1,000 ML IV SCH (05:00)
[2019-08-15 05:03] LABS: Absolute Lymphocytes (CBC) 2.1 K/uL (0.7-4.9); Basophils % 0.2 % (0-1.3); Hematocrit 36.1 % (36.0-45.0); Lymphocytes % 22.9 % (15.3-44.8); MPV 11.1 fL (7.6-11.3); RBC Red Blood Cell Count 4.17 M/uL (3.86-4.86)
[2019-08-15 05:04] LABS: Urine Appearance CLEAR; Urine Bilirubin NEGATIVE (NEG); Urine Blood NEGATIVE (NEG); Urine Color YELLOW; Urine Glucose NEGATIVE (NEG); Urine Protein NEGATIVE (NEG); Urine Urobilinogen 0.2 mg/dL (0.2-1.0); Urine pH 6.5 (5.0-7.0)
[2019-08-15 05:06] LABS: Urine Microscopic Reflex NO UMIC
[2019-08-15] MEDS ORDERED: ROPIVACAINE HCL 0.2% 20ML AMP IV ONE (08:25)
[2019-08-15] MEDS ORDERED: ROPIVACAINE HCL 100 ML IV PRN (08:25)
[2019-08-15] MEDS ORDERED: FENTANYL CITR 100 MCG/2 ML IV ONE (08:25)
[2019-08-15] MEDS ORDERED: LIDOCAINE 1% MPF 30 ML VIAL SQ ONE (11:28)
--- NOTE | 2019-08-15 13:50 | PREOPHP ---
Date of Admission: 08/15/2019 Patient is mya every 1-1/2 minutes but really still not that uncomfortable. We have changed the Pitocin out to make sure we have a fresh Pitocin bottle. I will check her in an hour. Last time she was checked, she was still 2.5 cm. Once she effaces I think that dilation will become more rapi d. I will check her in about an hour. FELIX/TABITHA Voice ID: [id number]
[2019-08-15] MEDS ORDERED: METHYLERGONOVINE 0.2MG/ML AMP IM ONE (19:01)
--- NOTE | 2019-08-15 20:02 | PN ---
Had 2 doses of Stadol and now has requested epidural, this has been placed, she is quite comfortable, she is not really even aware of her contractions. The baby still looks good. She is 4.5 cm, 80% ef faced, -1 to 0 station. We will start her doing pelvic rocks. Once she gets to 5 cm and completely effaced, I think will start making more progress, but how long that will take remains to be seen. FELIX/TABITHA Voice ID: [id number] Report ID: [id number]
[2019-08-15] MEDS ORDERED: ACETAMINOPHEN 500 MG TAB PO PRN (20:39)
[2019-08-15] MEDS ORDERED: BISACODYL 10 MG RECTAL SUPP RECT PRN (20:39)
[2019-08-15] MEDS ORDERED: DIPHENHYDRAMINE 25 MG TAB/CAP PO PRN (20:39)
[2019-08-15] MEDS ORDERED: DOCUSATE NA/SENNA CONC 1 TAB PO PRN (20:39)
[2019-08-15] MEDS ORDERED: Oxycodone HCl/Acetaminophen 1 TAB TAB PO PRN ×2 (20:39)
[2019-08-15] MEDS: IBUPROFEN 600 MG TAB PO PRN (22:10)
--- NOTE | 2019-08-16 00:02 | OP ---
Surgeon: Erick Sneed MD History: This is a 24-year-old primigravida, 39 weeks for induction. RH positive, immune to rubella , negative beta strep screen. When first examined this morning was 2.5 cm, 50% effaced, vertex, well applied. Rupture of membranes, clear fluid. During the first stage of labor, patient received two 1 mg doses of Stadol followed by epidural anesthesia. Second stage of about 30-45 minutes. Spontane ous vaginal delivery of an estimated 7-pound male , Apgars 9 and 9. Two small first-degree lac erations one on the left, one on the right all sutured with a running locked stitch of 2-0 chromic. Schultze delivery of the placenta, which was inspected and noted to be intact and normal. 350 mL or less blood loss. The patient tolerated all procedures well. Final Diagnoses: Term intrauterine 39 weeks, vaginal delivery, epidural anesthesia. FELIX/TABITHA Voice ID: [id number] Report ID: [id number]
[2019-08-16 01:22] LABS: RPR (Rapid Plasma Reagin) NON-REACT (NON-REACT)
[2019-08-16] MEDS: IBUPROFEN 600 MG TAB PO PRN ×2 (05:45→22:10)
--- NOTE | 2019-08-16 07:09 | DS ---
Hospital Course: A 24-year-old primigravida, 39 weeks gestation, delivered a 7 pounds 8 ounce male i nfant, Apgars 9 and 9. No episiotomy. Two small first-degree laceration. Epidural anesthesia. Dur ing the labor, Stadol 1 mg x2 prior to that. Schultze delivery of the placenta. Estimated blood los s 350 mL or less. Rh positive, immune to Rubella. Negative beta strep screen. afebrile, ambulating and voiding. Lochia was normal. No post epidural problems. She will be dismissed eithe r later this evening or tomorrow morning to report back to my office in 6 weeks for followup, to repo rt any temperature elevation of 100 degrees or greater, severe pain, heavy bleeding, or any other typ e of abnormalities. Request no analgesics on dismissal. She will use Motrin. She has had her Tdap i mmunization. Patient is breast feeding. Full discussion. Final Diagnoses: Term intrauterine 39 weeks, vaginal delivery, epidural anesthesia. Clarisse larios on immunizations. FELIX/TABITHA Voice ID: [id number] Report ID: [id number]
[2019-08-16 19:35] VITALS: BP 128/82; TEMP 99.1
[2019-08-17 03:29] LABS: HBsAG Nonreactive (Nonreactive)
== END 2019-08-16 23:07 | disposition home or self-care (01) | DRG 807 ==
LOC: 2ND-WC 04:07
PROVIDERS: ADMIT Specialist; ATTEND Specialist
PROC: 10907ZC Drainage of Amniotic Fluid, Therapeutic from Products of Conception, Via Natural or Artificial Opening (ICD-10-PCS; principal; 2019-08-15)
PROC: 10E0XZZ Delivery of Products of Conception, External Approach (ICD-10-PCS; 2019-08-15)
PROC: 0HQ9XZZ Repair Perineum Skin, External Approach (ICD-10-PCS; 2019-08-15)
DX: O70.0 First degree perineal laceration during delivery (principal); Z37.0 Single live birth; Z3A.39 39 weeks gestation of pregnancy
CPT/HCPCS: 36415; 81003; 85025; 86592; 86901; 87340; J0595; J2210; J2550; J2590; J2795; J3010; J7120

== ENCOUNTER 2021-08-03 15:40 | Emergency (ER) | payer OTHER ==
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
[2021-08-03] MEDS ORDERED: NA CHLORIDE 0.9% 1,000 ML ONE (16:22)
[2021-08-03] MEDS ORDERED: METOCLOPRAMIDE 10 MG/2mL INJ ONE (16:22)
[2021-08-03] MEDS ORDERED: DIPHENHYDRAMINE 50 MG/ML VIAL ONE (16:23)
--- NOTE | 2021-08-03 17:39 | EDPHYS ---
Physician Documentation [facility] Name: Gayle Hunt Age: 26 yrs Sex: Female : 1995 Arrival Date: 08/03/2021 Time: 15:42 Bed 4 Private MD: ED Physician Airam Cooper HPI: 08/03 16:09 This 26 yrs old Female presents to ER via Ambulatory with complaints of r/o covid. jmm 16:09 The patient or guardian reports cough. Onset: The symptoms/episode began/occurred jmm gradually, 2 day(s) ago. Modifying factors: The symptoms are alleviated by nothing. the symptoms are aggravated by nothing. Associated signs and symptoms: Pertinent positives: fever, rhinorrhea, sore throat. It is unknown whether or not the patient has had similar symptoms in the past. recently diagnosed with covid. 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 - Social history:: Smoking status: Patient/guardian denies using tobacco, Stopped _ months ago 2. ROS: 16:09 Constitutional: Positive for body aches, fever. jmm 16:09 ENT: Positive for sore throat. 16:09 Respiratory: Positive for cough. 16:09 All other systems are negative. Exam: 16:09 Constitutional: This is a well developed, well nourished patient who is awake, alert, jmm and in no acute distress. Head/Face: atraumatic. Eyes: EOMI, no conjunctival erythema appreciated ENT: Moist Mucus Membranes Neck: Trachea midline, Supple Chest/axilla: Normal chest wall appearance and motion. Cardiovascular: Regular rate and rhythm. No edema appreciated Respiratory: Normal respirations, no respiratory distress appreciated Abdomen/GI: Non distended, soft Back: Normal ROM Skin: General appearance color normal MS/ Extremity: Moves all extremities, no obvious deformities appreciated, no edema noted to the lower extremities Neuro: Awake and alert, normal gait Psych: Behavior is normal, Mood is normal, Patient is cooperative and pleasant Vital Signs: 15:56 BP 129 / 79; Pulse 115; Resp 20 S; Temp 97.2; Pulse Ox 100% on R/A; Weight 83.46 kg; jg9 Height 4 ft. 11 in. (149.86 cm) (R); 18:05 BP 122 / 70; Pulse 70; Resp 16; Temp 98.6; Pulse Ox 98% ; bp 15:56 Body Mass Index 37.16 (83.46 kg, 149.86 cm) 9 MDM: 16:09 Patient medically screened. [facility] 17:37 Data reviewed: vital signs, nurses notes. Counseling: I had a detailed discussion with tania the patient and/or guardian regarding: the historical points, exam findings, and any diagnostic results supporting the discharge/admit diagnosis, lab results, the need for outpatient follow up, to return to the emergency department if symptoms worsen or persist or if there are any questions or concerns that arise at home. ED course: Patient is alert and non toxic in appearance in the ED. No signs of resp distress. Patient advised to follow up with pcp and otherwise given strict return precautions. Patient understood and agrees with the plan of care. . 08/03 16:21 Order name: COVID-19/FLU A+B (Document "Date of Onset" if Symptomatic) 08/03 16:21 Order name: Strep; Complete Time: 17:16 08/03 17:14 Order name: Throat Culture EDMS Administered Medications: 16:35 Drug: Reglan (metoCLOPramide) 20 mg Route: IVP; Site: right antecubital; cb5 16:35 Drug: diphenhydrAMINE 12.5 mg Route: IVP; Site: right antecubital; cb5 16:36 Drug: NS 0.9% 1000 ml Route: IV; Rate: 1 bolus; Site: right antecubital; cb5 Disposition Summary: 08/03/21 17:39 Discharge Ordered Location: Home tania Condition: Stable tania Diagnosis - Coronavirus infection, unspecified tania Followup: tania - With: Private Physician - When: 2 - 3 days - Reason: Recheck today's complaints, Continuance of care, Re-evaluation by your physician Discharge Instructions: - Discharge Summary Sheet [facility] - COVID-19 tomsa Forms: - Medication Reconciliation Form [facility] - Thank You Letter tania - Antibiotic Education tania - Prescription Opioid Use [facility] Prescriptions: - ondansetron 4 mg Oral tablet,disintegrating - take 1 tablet by ORAL route every 4-6 hours; 20 tablet; Refills: 0, Product [facility] Selection Permitted Signatures: Dispatcher [employer] Raymnudo Olivo PA PA jmm Gilmore, Jennifer RN RN jg9 Yesika Hepmhill RN RN cb5
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
[2021-08-03 17:41] LABS: SARS-COV-2 RT PCR POSITIVE (NEGATIVE)
[2021-08-03 18:23] VITALS: BP 122/70; TEMP 98.6; O2SAT 98
== END 2021-08-03 18:07 | disposition home or self-care (01) ==
LOC: ER 15:40
DX: U07.1 COVID-19 (principal)
CPT/HCPCS: 87070; 87081; 0240U; 96375; 96374; 99283; J2765; J1200; J7030

== ENCOUNTER 2022-10-12 13:48 | Emergency (ER) | payer OTHER ==
--- OUTSIDE RECORDS SUMMARY | 2022-10-12 13:51 | XMS REPORT | Continuity of Care Document ---
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 2021-03-26 2021-03-26 Outpatient P [facility] [id number] Univers 13:00:00 13:00:00 ity of [facility] 2021-03-26 2021-03-26 Abstract Yasmine [facility] 1.2.840.114 [id number] Univers 00:00:00 00:00:00 Shainaa R SODA DISPENSER 350.1.13.10 ity of REGIONAL 4.2.7.2.686 [place] MATERNAL [phone] [facility] ical & CHILD [address] [place] [address] 2021-03-26 2021-03-26 Abstract [facility] 1.2.840.114 [id number] Univers 00:00:00 00:00:00 Rosolgaa R SODA DISPENSER 350.1.13.10 ity of [facility] 4.2.7.2.686 [place] as MATERNAL [phone] [facility] [address] 2021-03-11 2021-03-11 Initial [facility] 1.2.840.114 [id number] Univers 13:55:41 15:02:03 Rebecca R SODA DISPENSER 350.1.13.10 ity of Visit REGIONAL 4.2.7.2.686 [place] MATERNAL [phone] [facility] & [address] 2021-03-11 2021-03-11 Outpatient [facility] [id number] Univers 13:30:00 13:30:00 REBECCA ity o f [facility] 2021-03-11 2021-03-11 Orders Doctor MEHDI 1.2.840.114 [id number] Univers 00:00:00 00:00:00 Only Unassigned, TOMAS 350.1.13.10 ity of [place] [facility] 4.2.7.2.686 [place] as [phone] [address] 2021-01-17 2021-01-17 Emergency [facility] 1.2.972.862 [id number] Univers 01:08:00 01:45:00 Lindsay Carpenter 350.1.13.10 i ty of [place].2.[place] [phone] [place] [address] [place] 2020-08-27 2020-08-27 Emergency Hiram Gilmore [facility] 1.2.840.114 [id number] Univers 22:41:00 23:11:00 Donna Carpenter 350.1.13.10 i ty of [place] 4.2.7.2.686 [facility] [phone] [place] [address] [place] 2020-04-24 2020-04-25 Emergency Vasquez, [facility] 1.2.840.114 [id number] Univers 22:19:00 01:42:00 Kaliaservando Drew 350.1.13.10 i ty of [place] 4.2.7.2.686 [facility] [phone] [place] [address] [place] 2019-01-25 2019-01-25 Patient Doctor MEHDI 1.2.840.114 [id number] Univers 00:00:00 00:00:00 Secure Msg Unassigned, TOMAS 350.1.13.10 ity of [place] [facility] 4.2.7.2.686 [place] [phone] [place] [address] [place] Results This patient has no known results.
--- NOTE | 2022-10-12 14:27 | ER ---
Nurse's Notes [facility] Name: Gayle Hunt Age: 27 yrs Sex: Female : 1995 Arrival Date: 10/12/2022 Time: 13:52 Bed 16 Private MD: Diagnosis: Drug Abuse Presentation: 10/12 14:08 Chief complaint: Patient states: Snorted powder that she thought was MDMA at 0030. ll1 Started N/V, but feels better now. Friend that also took the drug , so they wanted to get checked out. Coronavirus screen: Vaccine status: Patient reports receiving the 2nd dose of the covid vaccine. Client denies travel out of the [place] in the last 14 days. At this time, the client does not indicate any symptoms associated with coronavirus-19. Ebola Screen: Patient denies travel to an Ebola-affected area in the 21 days before illness onset. Initial Sepsis Screen: Does the patient meet any 2 criteria? No. Patient's initial sepsis screen is negative. Does the patient have a suspected source of infection? No. Patient's initial sepsis screen is negative. Risk Assessment: Do you want to hurt yourself or someone else? Patient reports no desire to harm self or others. Onset of symptoms was October 12, 2022. 14:08 Method Of Arrival: Ambulatory ll1 14:08 Acuity: SILVIA 5 ll1 Triage Assessment: 14:10 General: Appears in no apparent distress. Behavior is calm, cooperative, appropriate ll1 for age. Pain: Denies pain. Neuro: No deficits noted. Historical: - Allergies: 14:09 No Known Allergies; ll1 - PMHx: 14:09 None; ll1 - PSHx: 14:09 None; ll1 - Immunization history:: Adult Immunizations up to date. - Social history:: Smoking status: Patient denies any tobacco usage or history of. Assessment: 14:14 General: Appears in no apparent distress. comfortable, Behavior is calm, cooperative, kc6 appropriate for age. Pain: Denies pain. Neuro: Level of Consciousness is awake, alert, obeys commands, Oriented to person, place, time, situation, Appropriate for age. Cardiovascular: Capillary refill < 3 seconds. Respiratory: Airway is patent Trachea midline Respiratory effort is even, unlabored, Respiratory pattern is regular, symmetrical. GI: No signs and/or symptoms were reported involving the gastrointestinal system. : No signs and/or symptoms were reported regarding the genitourinary system. EENT: No signs and/or symptoms were reported regarding the EENT system. Derm: No signs and/or symptoms reported regarding the dermatologic system. Skin is intact, Skin is pink, warm \T\ dry. Musculoskeletal: No signs and/or symptoms reported regarding the musculoskeletal system. Circulation, motion, and sensation intact. Capillary refill < 3 seconds, Range of motion: intact in all extremities. Vital Signs: 14:08 BP 124 / 84; Pulse 74; Resp 18; Temp 98; Pulse Ox 97% ; Weight 68.04 kg; Height 4 ft. 0 ll1 in. ; Pain 0/10; 14:08 Body Mass Index 45.77 (68.04 kg, 121.92 cm) ll1 14:08 Pain Scale: Adult ll1 ED Course: 13:52 Patient arrived in ED. am2 13:58 Zainab Roach FNP-C is [facility]. kb 13:58 Chung Sparks MD is Attending Physician. kb 14:08 Milagros Tran, ZONIA is Primary Nurse. kc6 14:08 Arm band placed on Patient placed in an exam room, on a stretcher. ll1 14:09 Triage completed. ll1 Administered Medications: No medications were administered Outcome: 14:27 Discharge ordered by . kb Signatures: Zainab Roach FNP-C FNP-Татьяна Oliva am2 Lizbeth Lr RN RN ll1 Milagros Tran, ZONIA RN kc6
--- NOTE | 2022-10-12 14:27 | EDPHYS ---
Physician Documentation [facility] Name: Gayle Hunt Age: 27 yrs Sex: Female : 1995 Arrival Date: 10/12/2022 Time: 13:52 Bed 16 Private MD: ED Physician Chung Sparks Historical: - Allergies: 10/12 14:09 No Known Allergies; ll1 - PMHx: 14:09 None; ll1 - PSHx: 14:09 None; ll1 - Immunization history:: Adult Immunizations up to date. - Social history:: Smoking status: Patient denies any tobacco usage or history of. Vital Signs: 14:08 BP 124 / 84; Pulse 74; Resp 18; Temp 98; Pulse Ox 97% ; Weight 68.04 kg; Height 4 ft. 0 ll1 in. ; Pain 0/10; 14:08 Body Mass Index 45.77 (68.04 kg, 121.92 cm) ll1 14:08 Pain Scale: Adult ll1 MDM: 13:59 Patient medically screened. kb Administered Medications: No medications were administered Disposition Summary: 10/12/22 14:27 Discharge Ordered Location: Home kb Condition: Stable kb Diagnosis - Drug Abuse kb Followup: kb - With: Emergency Department - When: As needed - Reason: Worsening of condition Followup: kb - With: Private Physician - When: 2 - 3 days - Reason: Recheck today's complaints, Continuance of care, Re-evaluation by your physician Forms: - Medication Reconciliation Form kb - Thank You Letter kb - Antibiotic Education kb - Prescription Opioid Use kb Signatures: Zainab Roach FNP-C FNP-Lizbeth Levy, RN RN ll1
== END 2022-10-12 15:06 | disposition home or self-care (01) ==
LOC: ER 13:48
DX: F19.10 Other psychoactive substance abuse, uncomplicated (principal); R11.2 Nausea with vomiting, unspecified
CPT/HCPCS: 99281